=== PATIENT | male | born 1945 | race Caucasian/White ===

== ENCOUNTER 2018-05-21 12:25 | Outpatient (CLI) | payer MEDICARE, OTHER ==
--- NOTE | 2018-05-21 15:36 | MRI ---
MRI OF THE LUMBAR SPINE WITHOUT CONTRAST: Date: 05/21/18 COMPARISON: None. HISTORY: Lumbar radiculopathy with low back pain extending down the right leg. TECHNIQUE: Multiplanar, multisequence MR images were obtained of the lumbar spine without contrast. FINDINGS: Generalized disc desiccation is seen. The vertebral bodies demonstrate normal height and alignment wi thout fracture or subluxation. The L5-S1 intervertebral disc is narrowed. The conus medullaris terminates normally at L1. There are foci of high T2 signal in the right kidney measuring up to 4.2 cm in size, which represents a cyst. The other prevertebral and paraspinal soft t issues are unremarkable. T12-L1: Unremarkable. L1-2: Unremarkable. L2-3: Unremarkable. L3-4: No significant posterior disc bulge or protrusion. Mild to moderate bilateral posterior facet arthrosis. Mild central canal stenosis. No neural foraminal stenosis. L4-5: A moderate generalized concentric disc bulge is associated with superimposed small central pro trusion. Mild to moderate bilateral posterior facet arthrosis. Moderate central canal stenosis. Moder ate bilateral neural foraminal stenosis. L5-S1: A small disc osteophyte complex is seen. Mild bilateral posterior facet arthrosis. No central canal stenosis. Mild bilateral neural foraminal stenosis. IMPRESSION: Degenerative changes of the lumbar spine as above. POS: HÉCTOR
--- NOTE | 2018-05-21 15:53 | MRI ---
CERVICAL SPINE MRI WITHOUT IV CONTRAST: 05/21/18 HISTORY: 72-year-old male with history of neck pain with occasional numbness in his hands. Multiplanar and multisequential MRI examination of the cervical spine is performed. There are general ized disc desiccation changes and ligament and facet hypertrophic changes. There is no spinal cord ma ss or spinal cord compression or abnormal signal within the spinal cord. No evidence of abnormal louie ow signal. C2-C3 disc level is unremarkable. C3-C4, there is very slight right foraminal narrowing. C4-C5, no significant central canal, lateral recess, or foraminal stenosis. C5-C6, there is moderate bilateral foraminal stenosis bilaterally without significant central canal o r lateral recess stenosis. C6-C7, no significant canal, lateral recess, or foraminal stenosis. C7-T1, there is some mild narrowing involving the right foramen. 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 No spinal cord mass or spinal cord co mpression. No abnormal marrow signal. POS: HÉCTOR
== END 2018-05-21 12:26 | disposition home or self-care (01) ==
LOC: BICMRI 12:25
PROVIDERS: ATTEND Surgery
DX: M54.2 Cervicalgia (principal); M47.26 Other spondylosis with radiculopathy, lumbar region; M99.81 Other biomechanical lesions of cervical region
CPT/HCPCS: 72141; 72148

== ENCOUNTER 2023-02-14 00:58 | Emergency (ER) | payer MEDICARE, OTHER ==
[2023-02-14 01:28] LABS: #Eosinphils 0.2 thou/uL (0.0-0.7); #Monocytes 0.5 thou/uL (0.11-0.59); #Neutrophils 3.2 thou/uL (1.40-6.50); %Basophils 0.7 % (0.0-1.0); %Eosinophils 3.2 % (0.0-10.0); %Lymphocytes 32.3 % (21.0-51.0); %Neutrophils 54.5 % (42.0-75.0); Hemoglobin 12.4 g/dL (14.0-18.0); Mean Corpuscular HGB CONC 32.5 g/dL (32.0-36.0); Mean Corpuscular Hemoglobin 28.8 pg (27.0-31.0); Mean Corpuscular Volume 88.4 fl (78.0-98.0); Mean Platelet Volume 11.5 fL (7.4-10.4); Platelet Count 170 10x3/uL (130-400); RBC Distribution Width 14.6 % (11.5-14.5); Red Blood Cell (RBC) Count 4.31 mill/uL (4.70-6.10); White Blood Cell (WBC) Count 5.9 10x3/uL (4.8-10.8)
[2023-02-14 01:51] LABS: ALT (SGPT) 17 U/L (8-55); AST (SGOT) 22 U/L (5-34); Alkaline Phosphatase 75 U/L (40-110); Anion Gap 14 mmol/L (10-20); BUN (Urea Nitrogen) 26 mg/dL (8.4-25.7); Bilirubin, Total 0.5 mg/dL (0.2-1.2); Calc. Creatinine Clearance 0 mL/min (70-130); Calcium 9.1 mg/dL (7.8-10.44); Carbon Dioxide 25 mmol/L (23-31); Chloride 106 mmol/L (98-107); Estimated GFR 39; Globulin 2.5 g/dL (2.4-3.5); Glucose 97 mg/dL (83-110); Potassium 3.7 mmol/L (3.5-5.1); Protein, Total 6.5 g/dL (5.8-8.1); Sodium 141 mmol/L (136-145)
[2023-02-14] MEDS ORDERED: Acetaminophen 500 MG TAB ONE ×2 (03:43→03:44)
[2023-02-14] MEDS ORDERED: Iopamidol-370 76% 500 ML MDV (1 ML CHARGE) ONE (09:24)
== END 2023-02-14 04:03 | disposition home or self-care (01) ==
LOC: ERS 00:58
DX: R10.32 Left lower quadrant pain (principal)
CPT/HCPCS: 36415; 74177; 80053; 85025; Q9967

== ENCOUNTER 2023-07-10 13:18 | Outpatient (CLI) | payer MEDICARE, OTHER | END 2023-07-10 13:19 | disposition home or self-care (01) | LOC: LABBT 13:18 | PROVIDERS: ATTEND Internal Medicine Cardiovascular Disease | DX: Z01.810 Encounter for preprocedural cardiovascular examination (principal) | CPT/HCPCS: 93005; 93010 ==

== ENCOUNTER 2023-07-11 05:42 | Day surgery (SDC) | payer MEDICARE, OTHER ==
[2023-07-10 13:54] VITALS: BMI 40.0
[2023-07-11] MEDS ORDERED: Verapamil 5 MG/2 ML VIAL ONE (06:19)
[2023-07-11] MEDS ORDERED: Heparin 10,000 UNITS/ 10 ML VIAL ONE (06:19)
[2023-07-11] MEDS ORDERED: Lidocaine 1% (PF) 30 ML VIAL ONE (06:19)
[2023-07-11] MEDS ORDERED: Nitroglycerin 50 MG/250 ML BOT 0 ML ONE (06:20)
[2023-07-11] MEDS ORDERED: Midazolam HCl 2 mg/2 ml Vial ONE (07:03)
[2023-07-11] MEDS ORDERED: fentaNYL 50 mcg/mL 1 mL Vial ONE (07:03)
[2023-07-11] MEDS ORDERED: hydrALAZINE 20 MG/ML VIAL ONE (07:38)
[2023-07-11] MEDS ORDERED: Protamine Sulfate 50 MG/5 ML VIAL ONE (07:39)
[2023-07-11] MEDS ORDERED: Acetaminophen 325 MG TAB ONE (09:22)
[2023-07-11] MEDS ORDERED: Iopamidol 370 76% 100 ML VIAL ONE (10:32)
== END 2023-07-11 15:53 | disposition home or self-care (01) ==
LOC: SDC 05:42
PROVIDERS: ATTEND Internal Medicine Cardiovascular Disease
PROC: 4A023N8 Measurement of Cardiac Sampling and Pressure, Bilateral, Percutaneous Approach (ICD-10-PCS; principal; 2023-07-11)
DX: R94.39 Abnormal result of other cardiovascular function study (principal); R07.89 Other chest pain; I45.10 Unspecified right bundle-branch block; M79.89 Other specified soft tissue disorders; N17.9 Acute kidney failure, unspecified; E78.00 Pure hypercholesterolemia, unspecified; I87.2 Venous insufficiency (chronic) (peripheral); I89.0 Lymphedema, not elsewhere classified; Z98.49 Cataract extraction status, unspecified eye; Z98.41 Cataract extraction status, right eye; Z98.42 Cataract extraction status, left eye; Z87.891 Personal history of nicotine dependence
CPT/HCPCS: 85347 ×2; 93458; C1769 ×3; J0360; J3010; 99152; J1644; J2001; J2250; J2720; Q9967